=== PATIENT | female | born 1985 | race African-American/Black ===

== ENCOUNTER 2017-06-13 00:48 | Emergency (ER) | payer SELFPAY ==
[~2017-06-13] VITALS: Ht 170.2 cm; Wt 58.6 kg
[2017-06-13 06:28] VITALS: BP 109/62
[2017-06-13] MEDS ORDERED: LIDOCAINE HCL 1% 20ML VIAL (Pyxis) INJ MC ONE (07:00)
[2017-06-13] MEDS ORDERED: TETANUS, DIPHTHERIA, PERTUSSIS VAC/PF 0.5ML (>7YR OLD) IM ONE (07:45)
== END 2017-06-13 08:30 | disposition home or self-care (01) ==
LOC: ER 00:48
DX: L03.011 Cellulitis of right finger (principal); F17.200 Nicotine dependence, unspecified, uncomplicated
CPT/HCPCS: 10060; 90471; 90715; 99283; J3490; Z7610

== ENCOUNTER 2017-06-13 22:57 | Emergency (ER) | payer SELFPAY ==
[~2017-06-13] VITALS: Ht 170.2 cm; Wt 59.4 kg
[2017-06-14 07:50] VITALS: BP 112/61
== END 2017-06-14 08:12 | disposition home or self-care (01) ==
LOC: ER 22:57
DX: L03.031 Cellulitis of right toe (principal); F17.200 Nicotine dependence, unspecified, uncomplicated; Z88.4 Allergy status to anesthetic agent
CPT/HCPCS: 99283